=== PATIENT | male | born 1950 | race Caucasian/White ===

== ENCOUNTER 2020-11-15 10:48 | Emergency (ER) | payer OTHER ==
[~2020-11-15] VITALS: Ht 172.7 cm; Wt 97.1 kg
[2020-11-15] MEDS ORDERED: AVAPRO300 MG PO (11:16)
[2020-11-15] MEDS ORDERED: MITIGARE0.6 MG PO (11:16)
[2020-11-15] MEDS ORDERED: TRELEGY ELLIPT1 EACH IH (11:17)
[2020-11-15] MEDS ORDERED: TENORMIN25 MG PO (11:17)
[2020-11-15] MEDS ORDERED: ZETIA10 MG PO (11:17)
[2020-11-15] MEDS ORDERED: NORVASC5 MG PO (11:17)
[2020-11-15] MEDS ORDERED: ALDACTONE50 MG PO (11:17)
[2020-11-15] MEDS ORDERED: HYDRALAZINE HCL50 MG PO (11:17)
[2020-11-15] MEDS ORDERED: DICLOFENAC POTA50 MG PO (14:42)
[2020-11-15] MEDS ORDERED: ORPHENADRINE C100 MG PO (14:42)
[2020-11-15] MEDS ORDERED: ULTRAM50 MG PO (14:42)
== END 2020-11-15 14:56 | disposition home or self-care (01) ==
LOC: ER 10:48
DX: M54.5 Low back pain (principal); M54.2 Cervicalgia; M25.562 Pain in left knee; M10.9 Gout, unspecified; M13.80 Other specified arthritis, unspecified site

== ENCOUNTER 2020-12-19 07:14 | Emergency (ER) | payer OTHER ==
[~2020-12-19] VITALS: Ht 172.7 cm; Wt 94.3 kg
[~2020-12-19 07:14] MED LIST: ALDACTONE50 MG PO; AVAPRO300 MG PO; DICLOFENAC POTA50 MG PO; HYDRALAZINE HCL50 MG PO; MITIGARE0.6 MG PO; NORVASC5 MG PO; ORPHENADRINE C100 MG PO; TENORMIN25 MG PO; TRELEGY ELLIPT1 EACH IH; ULTRAM50 MG PO; ZETIA10 MG PO
[2020-12-19] MEDS ORDERED: ZITHROMAX TRI-500 MG PO (12:18)
== END 2020-12-19 12:26 | disposition home or self-care (01) ==
LOC: ER 07:14
DX: B37.0 Candidal stomatitis (principal); R07.0 Pain in throat; Z03.818 Encounter for observation for suspected exposure to other biological agents ruled out